=== PATIENT | female | born 1995 | race Caucasian/White ===

== ENCOUNTER 2017-07-10 20:56 | Emergency (ER) | payer SELFPAY ==
[~2017-07-10] VITALS: Ht 160 cm; Wt 81.5 kg
[~2017-07-10 20:56] MED LIST: Z.0.NO CURRENT MEDS
[2017-07-10 20:57] VITALS: BP 139/99; PULSE 86; RESP 15; TEMP 98.8; O2SAT 99
[2017-07-10 23:07] VITALS: BP 130/89; PULSE 77; RESP 18; TEMP 98.9; O2SAT 98
--- NOTE | 2017-07-10 23:44 | PD ---
HPI Chief Complaint: [place] Problem/Complaint Time Seen by Provider: 23:36 Travel History International Travel<30 days: No Contact w/Intl Traveler<30days: No Traveled to known affect area: No History of Present Illness HPI C/O SUPRAPUBIC PRESSURE, OVER LAST WEEK OR SO INTERMITTENTLY, NO VAG BLEED, NO VAG DISCHARGE, NONRAD, 05/24, PFSH Past Medical History Medical History: Denies Significant Hx ADHD: No Cancer: No Cardiovascular Problems: No Diabetes: No Patient Takes Glucophage: No Migraines: No Seizures: No Thyroid Disease: No Ulcer: No ?: Unknown LMP: 06/06/17 Past Surgical History Surgical History: No Previous Surgery Other Surgery: No Social History Alcohol Use: No Tobacco Use: No Substance Use: No Allergies-Medications (Allergen,Severity, Reaction): Coded Allergies: No Known Allergies (Unverified , 07/10/17) Reported Meds & Prescriptions Reported Meds & Active Scripts Active No Active Prescriptions or Reported Medications Review of Systems Except as stated in HPI: all other systems reviewed are Neg Gastrointestinal: Positive: Abdominal Pain Physical Exam Narrative GENERAL: SKIN: Warm and dry. HEAD: Atraumatic. Normocephalic. EYES: Pupils equal and round. No scleral icterus. No injection or drainage. ENT: No nasal bleeding or discharge. Mucous membranes pink and moist. NECK: Trachea midline. No JVD. CARDIOVASCULAR: Regular rate and rhythm. RESPIRATORY: No accessory muscle use. Clear to auscultation. Breath sounds equal bilaterally. GASTROINTESTINAL: Abdomen soft, MILD SUPRAPUBIC TTP, nondistended. MUSCULOSKELETAL: Extremities without clubbing, cyanosis, or edema. No obvious deformities. NEUROLOGICAL: Awake and alert. No obvious cranial nerve deficits. Motor grossly within normal limits. Five out of 5 muscle strength in the arms and legs. Normal speech. PSYCHIATRIC: Appropriate mood and affect; insight and judgment normal. Data Data Last Documented VS Vital Signs Date Time Temp Pulse Resp B/P (MAP) Pulse Ox O2 Delivery O2 Flow Rate FiO2 07/10/17 23:07 98.9 77 18 130/89 (103) 98 Room Air Orders Orders Urinalysis - C+S If Indicated (07/10/17 23:40) Ct Abd/Pel W/O Iv Contrast (07/10/17 23:40) Ed Urine Pregnancytest Poc (07/10/17 23:40) Tramadol (Ultram) (07/10/17 23:45) Ondansetron Odt (Zofran Odt) (07/10/17 23:45) Labs Laboratory Tests Test 07/10/17 23:40 Urine Color YELLOW Urine Turbidity CLEAR Urine pH 5.5 Urine Specific [place] 1.013 Urine Protein NEG mg/dL Urine Glucose (UA) NEG mg/dL Urine Ketones NEG mg/dL Urine Occult Blood NEG Urine Nitrite NEG Urine Bilirubin NEG Urine Urobilinogen LESS THAN 2.0 MG/DL Urine Leukocyte Esterase SMALL Urine RBC 1 /hpf Urine WBC 1 /hpf Urine Squamous Epithelial Cells 3 /hpf Microscopic Urinalysis Comment CULT NOT INDICATED MDM Medical Decision Making Medical Screen Exam Complete: Yes Emergency Medical Condition: Yes Medical Record Reviewed: Yes Differential Diagnosis UTI V PREG RELATED V OVARIAN CYST V COLITIS Narrative Course NOT , CT NEG FOR COLITIS/OVARIAN CYST/KIDNEY STONES....SOME PYURIA NOTED ON UA WILL D/C ON PO ABX Diagnosis Primary Impression: UTI Patient Instructions: General Instructions, Urinary Tract Infection in Women ( ED) Scripts Tramadol (Ultram) 50 Mg Tab 50 MG PO Q4H Y for PAIN, #20 TAB 0 Refills Prov: Mario Preston MD 07/11/17 Nitrofurantoin Monohydrate Macrocrystals (Macrobid) 100 Mg Cap 100 MG PO BID for Infection, #14 CAP 0 Refills Prov: Mario Preston MD 07/11/17 Disposition: 01 DISCHARGE HOME Condition: Stable Mario Preston MD Jul 10, 2017 23:44
[2017-07-10] MEDS ORDERED: traMADol HCL 50 MG TAB PO ONE (23:45)
[2017-07-10] MEDS ORDERED: ONDANSETRON ODT 4 MG TAB PO ONE (23:45)
[2017-07-11 00:02] LABS: BLOOD, URINE NEG (NEG); COMMENT (UR) CULT NOT INDICATED; CULTURE IF INDICATED CULT NOT INDICATED; GLUCOSE,URINE NEG (NEG); KETONE, URINE NEG (NEG); NITRITE,URINE NEG (NEG); PH, URINE 5.5 (5.0-8.5); SQUAMOUS EPITHELIAL CELL URINE 3 /hpf (0-5); URINE COLOR YELLOW (YELLW/STRAW)
--- NOTE | 2017-07-11 00:58 | RADRPT ---
EXAM DATE/TIME: 07/10/2017 23:54 [facility] COMPARISON: No previous studies available for comparison. INDICATIONS : Suprapubic pressure. ORAL CONTRAST: No oral contrast ingested. RADIATION DOSE: 12.60 CTDIvol (mGy) MEDICAL HISTORY : None SURGICAL HISTORY : None. ENCOUNTER: Initial ACUITY: 2 days PAIN SCALE: 8/10 LOCATION: lower abdomen TECHNIQUE: Volumetric scanning of the abdomen and pelvis was performed. Using automated exposure control and ad justment of the mA and/or kV according to patient size, radiation dose was kept as low as reasonably achievable to obtain optimal diagnostic quality images. DICOM format image data is available electro nically for review and comparison. FINDINGS: LOWER LUNGS: The visualized lower lungs are clear. LIVER: Homogeneous density without lesion. There is no dilation of the biliary tree. No calcified gallston es. SPLEEN: Normal size without lesion. PANCREAS: Within normal limits. KIDNEYS: Normal in size and shape. There is no mass, stone, or hydronephrosis. ADRENAL GLANDS: Within normal limits. VASCULAR: There is no aortic aneurysm. BOWEL/MESENTERY: The stomach, small bowel, and colon demonstrate no acute abnormality. There is no free intraperitone al air or fluid. ABDOMINAL WALL: Within normal limits. RETROPERITONEUM: There is no lymphadenopathy. BLADDER: No wall thickening or mass. REPRODUCTIVE: Within normal limits. INGUINAL: There is no lymphadenopathy or hernia. MUSCULOSKELETAL: Within normal limits for patient age. CONCLUSION: Normal examination. Car Mondragon MD on July 11, 2017 at 0:53 Board Certified Radiologist. This report was verified electronically.
[2017-07-11] MEDS ORDERED: ULTR50TA5 PO (03:24)
[2017-07-11] MEDS ORDERED: MACR100C2 PO (03:24)
== END 2017-07-11 03:49 | disposition home or self-care (01) ==
LOC: NEPC 20:56
DX: N39.0 Urinary tract infection, site not specified (principal)
CPT/HCPCS: 74176; 81001; 84703; 99285

== ENCOUNTER 2017-08-21 18:43 | Emergency (ER) | payer SELFPAY ==
[~2017-08-21 18:43] MED LIST changes: +MACR100C2 PO; +TRAM50 PO; -Z.0.NO CURRENT MEDS
[2017-08-21 18:47] VITALS: BP 140/81; PULSE 96; RESP 18; TEMP 99.1; O2SAT 99
[2017-08-21] MEDS ORDERED: PREN29TA PO (19:57)
[2017-08-21 20:12] LABS: BACTERIA, URINE RARE /hpf; BLOOD, URINE NEG (NEG); COMMENT (UR) CULT NOT INDICATED; CULTURE IF INDICATED CULT NOT INDICATED; GLUCOSE,URINE NEG (NEG); KETONE, URINE NEG (NEG); NITRITE,URINE NEG (NEG); SQUAMOUS EPITHELIAL CELL URINE 2 /hpf (0-5); URINE COLOR LIGHT-YELLOW (YELLW/STRAW)
[2017-08-21 20:19] LABS: AUTOMATED NEUTROPHIL # 7.6 TH/MM3 (1.8-7.7); BASOPHIL # 0.1 TH/MM3 (0-0.2); BASOPHIL % 0.5 % (0.0-2.0); EOSINOPHIL # 0.1 TH/MM3 (0-0.4); EOSINOPHIL % 0.7 % (0.0-4.0); HEMATOCRIT 40.6 % (35.0-46.0); HEMO FLAGS DIFF FINAL; LYMPHOCYTE # 3.7 TH/MM3 (1.0-4.8); MEAN CELL VOLUME 85.6 FL (80.0-100.0); MEAN CORPUSCULAR HEMOGLOBIN 29.5 PG (27.0-34.0); MEAN CORPUSCULAR HGB CONC 34.4 % (32.0-36.0); MONO % 9.7 % (0.0-8.0); NEUT % 60.1 % (16.0-70.0); PLATELET COUNT 284 TH/MM3 (150-450); RED BLOOD COUNT 4.74 MIL/MM3 (4.00-5.30); RED CELL DISTRIBUTION WIDTH 12.7 % (11.6-17.2); WHITE BLOOD COUNT 12.6 TH/MM3 (4.0-11.0)
[2017-08-21 20:42] LABS: BICARBONATE 25.5 MEQ/L (21.0-32.0); POTASSIUM 4.1 MEQ/L (3.5-5.1)
--- NOTE | 2017-08-21 22:55 | PD ---
HPI Chief Complaint: Related Problem Time Seen by Provider: 20:52 Travel History International Travel<30 days: No Contact w/Intl Traveler<30days: No Traveled to known affect area: No History of Present Illness HPI 22-year-old female complains of lower abdominal pain. Patient is 3 para 0. Patient states that she is about 6 weeks by date. Patient states that she started having low abdominal cramping since this morning. Patient denies any pain radiation. Patient denies any vaginal discharge or bleeding. Patient denies any dysuria or frequency. Patient denies any fever chills. Patient denies any back pain. Patient has not seen an OB physician for this . Patient's blood type A+. PFSH Past Medical History ADHD: No Cancer: No Cardiovascular Problems: No Diabetes: No Diminished Hearing: No Immunizations Current: Yes Migraines: No Seizures: No Thyroid Disease: No Ulcer: No ?: Dilation and Curettage (D&C): Yes Past Surgical History Other Surgery: No Social History Alcohol Use: No Tobacco Use: No Substance Use: No Allergies-Medications (Allergen,Severity, Reaction): Coded Allergies: No Known Allergies (Unverified Adverse Reaction, Unknown, 08/21/17) Reported Meds & Prescriptions Reported Meds & Active Scripts Active Reported Plus Iron 29-1 mg ( Vit-Iron Carbonyl) 29 Mg Iron-1 Mg Tab 1 Tab PO DAILY Review of Systems General / Constitutional: No: Fever Eyes: No: Visual changes HENT: No: Headaches Cardiovascular: No: Chest Pain or Discomfort Respiratory: No: Shortness of Breath Gastrointestinal: Positive: Abdominal Pain Genitourinary: No: Dysuria Musculoskeletal: No: Pain Skin: No Rash Neurologic: No: Weakness Psychiatric: No: Depression Endocrine: No: Polydipsia Hematologic/Lymphatic: No: Easy Bruising Physical Exam Narrative GENERAL: Well-nourished, well-developed patient. SKIN: Focused skin assessment warm/dry. HEAD: Normocephalic. EYES: No scleral icterus. No injection or drainage. NECK: Supple, trachea midline. No JVD or lymphadenopathy. CARDIOVASCULAR: Regular rate and rhythm without murmurs, gallops, or rubs. RESPIRATORY: Breath sounds equal bilaterally. No accessory muscle use. GASTROINTESTINAL: Abdomen soft, nondistended. Mild tenderness on palpation lower abdomen. No rebound tenderness. No mass. MUSCULOSKELETAL: No cyanosis, or edema. BACK: Nontender without obvious deformity. No CVA tenderness. DIRECTOR [employer]ORTS exam: The cervix long thick and closed. Uterus is enlarged with mild tenderness on palpation. No adnexal mass or tenderness. Neurologic exam normal. Data Data Last Documented VS Vital Signs Date Time Temp Pulse Resp B/P (MAP) Pulse Ox O2 Delivery O2 Flow Rate FiO2 08/21/17 19:55 18 08/21/17 18:47 99.1 96 140/81 (100) 99 Room Air Orders Orders Complete Blood Count With Diff (08/21/17 19:04) Basic Metabolic Panel (Bmp) (08/21/17 19:04) Urinalysis - C+S If Indicated (08/21/17 19:04) Beta Hcg (Quant/Titer) (08/21/17 19:04) Complete Rh (08/21/17 19:04) Ed Urine Pregnancytest Poc (08/21/17 19:50) Us Pelvis (Ques Pr/Ect)W Trans (08/21/17 21:25) Labs Laboratory Tests Test 08/21/17 19:17 08/21/17 19:30 Urine Color LIGHT-YELLOW Urine Turbidity CLEAR Urine pH 5.0 Urine Specific [place] 1.009 Urine Protein NEG mg/dL Urine Glucose (UA) NEG mg/dL Urine Ketones NEG mg/dL Urine Occult Blood NEG Urine Nitrite NEG Urine Bilirubin NEG Urine Urobilinogen LESS THAN 2.0 MG/DL Urine Leukocyte Esterase MOD Urine RBC 3 /hpf Urine WBC 4 /hpf Urine Squamous Epithelial Cells 2 /hpf Urine Amorphous Sediment RARE Urine Bacteria RARE /hpf Microscopic Urinalysis Comment CULT NOT INDICATED White Blood Count 12.6 TH/MM3 Red Blood Count 4.74 MIL/MM3 Hemoglobin 14.0 GM/DL Hematocrit 40.6 % Mean Corpuscular Volume 85.6 FL Mean Corpuscular Hemoglobin 29.5 PG Mean Corpuscular Hemoglobin Concent 34.4 % Red Cell Distribution Width 12.7 % Platelet Count 284 TH/MM3 Mean Platelet Volume 8.2 FL Neutrophils (%) (Auto) 60.1 % Lymphocytes (%) (Auto) 29.0 % Monocytes (%) (Auto) 9.7 % Eosinophils (%) (Auto) 0.7 % Basophils (%) (Auto) 0.5 % Neutrophils # (Auto) 7.6 TH/MM3 Lymphocytes # (Auto) 3.7 TH/MM3 Monocytes # (Auto) 1.2 TH/MM3 Eosinophils # (Auto) 0.1 TH/MM3 Basophils # (Auto) 0.1 TH/MM3 CBC Comment DIFF FINAL Differential Comment Blood Urea Nitrogen 10 MG/DL Creatinine 0.64 MG/DL Random Glucose 63 MG/DL Calcium Level 9.5 MG/DL Sodium Level 136 MEQ/L Potassium Level 4.1 MEQ/L Chloride Level 103 MEQ/L Carbon Dioxide Level 25.5 MEQ/L Anion Gap 8 MEQ/L Estimat Glomerular Filtration Rate 118 ML/MIN Human Chorionic Gonadotropin, Quant 5270 MIU/ML MDM Medical Decision Making Medical Screen Exam Complete: Yes Emergency Medical Condition: Yes Interpretation(s) 22:53 PM. CBC WBC 12.6. Normal differential. BMP within normal limit. Beta- hCG 5270. UA positive for 4 WBC and rare bacteria. Blood type A+ 23:45 PM. Last Impressions Pelvis Ultrasound 08/21/172124 Signed Impressions: Service Date/Time: Monday, August 21, 2017 22:00 - CONCLUSION: 1. Solitary intrauterine gestation. Gestational age is below the threshold for accurate depiction with ultrasound. 2. 2 cm complex cystic lesion involving the right ovary likely related to corpus luteal cyst. Kt Peters Jr., MD Differential Diagnosis Differential diagnosis including threaten AB, incomplete AB, completed AB, ectopic , UTI, ligament pain. Narrative Course 22-year-old female with a 6 week by date complains of low abdominal pain. Diagnosis Primary Impression: Pelvic pain during Additional Impression: Bacteriuria Patient Instructions: General Instructions Additional Instructions: Macrobid as directed. Follow-up with personal physician and OB physician. Return if increased abdominal pain, vaginal discharge or bleeding. Med/Other Pt SpecificInfo: Prescription(s) given Scripts Nitrofurantoin Monohydrate Macrocrystals (Macrobid) 100 Mg Cap 100 MG PO BID for Infection, #14 CAP 0 Refills Prov: Chuy Lees MD 08/21/17 Disposition: 01 DISCHARGE HOME Condition: Stable Chuy Lees MD Aug 21, 2017 22:55
--- NOTE | 2017-08-21 22:58 | RADRPT ---
EXAM DATE/TIME: 08/21/2017 22:00 [facility] COMPARISON: No previous studies available for comparison. INDICATIONS : Pelvic pain. LAB(S): Beta-hC MEDICAL HISTORY : . Miscarriage x 2. Ectopic . SURGICAL HISTORY : Dilation and curettage. ENCOUNTER: Initial ACUITY: 1 day PAIN SCORE: 4/10 LOCATION: Bilateral pelvis MEASUREMENTS: UTERUS: 10.3 x 5.7 x 3.9 cm ENDOMETRIAL STRIPE: 13 mm RIGHT OVARY: 4.5 x 2.4 x 2.5 cm LEFT OVARY: 2.3 x 1.3 x 1.3 cm FREE FLUID: No CROWN RUMP LENGTH: Non visualized. = WKS DAYS FHR: Non visualized. BPM FINDINGS: UTERUS: A solitary intrauterine gestation observed. There is a smoothly marginated and well circumscribed ges tational sac. Mean sac diameter 0.92 cm which is below the threshold for accurate gestational age dep iction with ultrasound. There is a well-formed yolk sac. No pole currently seen. A tiny nabothi an cyst measuring 4 mm. RIGHT OVARY: There is a complex cyst measuring 2 cm in diameter. There is some posterior acoustical enhancement. T he remaining ovary is unremarkable. LEFT OVARY: Ovary contains no mass or significant cystic lesion. MISCELLANEOUS: No free fluid. CONCLUSION: 1. Solitary intrauterine gestation. Gestational age is below the threshold for accurate depiction wit h ultrasound. 2. 2 cm complex cystic lesion involving the right ovary likely related to corpus luteal cyst. Kt Peters Jr., MD on August 21, 2017 at 22:53 Board Certified Radiologist. This report was verified electronically.
[2017-08-21] MEDS ORDERED: MACR100C2 PO (23:49)
== END 2017-08-22 00:14 | disposition home or self-care (01) ==
LOC: NEPD 18:43
DX: O26.891 Other specified pregnancy related conditions, first trimester (principal); R10.2 Pelvic and perineal pain; R82.71 Bacteriuria; Z3A.01 Less than 8 weeks gestation of pregnancy
CPT/HCPCS: 76700; 76817; 80048; 81001; 84702; 84703; 85025; 86901

== ENCOUNTER 2017-09-16 12:48 | Emergency (ER) | payer OTHER ==
[~2017-09-16] VITALS: Ht 185.4 cm; Wt 90.0 kg
[~2017-09-16 12:48] MED LIST changes: -MACR100C2 PO; +PREN1CAP20 PO; +PREN29TA PO; -TRAM50 PO
[2017-09-16 12:49] VITALS: BP 139/87; PULSE 101; RESP 16; TEMP 98; O2SAT 99
--- NOTE | 2017-09-16 13:27 | PD ---
HPI Chief Complaint: Dizziness Time Seen by Provider: 12:59 Travel History International Travel<30 days: No Contact w/Intl Traveler<30days: No Traveled to known affect area: No History of Present Illness HPI Patient is a 22-year-old female presenting to emergency for evaluation of a sore throat. She states it started last night, it was worse this morning. She states the pain is 8 out of 10 and she states his sore and irritated feeling. She also reports abdominal cramping, this is been ongoing for the last several days. She denies any vaginal bleeding, discharge, nausea, vomiting. Patient is 10 weeks . She has been seen and evaluated by her optometric technologist and is taking vitamins. She states that she has not had a bowel movement in 1 week. She did not contact her optometric technologist regarding the abdominal cramping as the pain was not that significant. Patient took Tylenol at 10:00 this morning. PFSH Past Medical History Medical History: Denies Significant Hx ADHD: No Cancer: No Cardiovascular Problems: No Diabetes: No Diminished Hearing: No Immunizations Current: Yes Migraines: No Seizures: No Thyroid Disease: No Ulcer: No ?: Dilation and Curettage (D&C): Yes Past Surgical History Surgical History: No Previous Surgery Other Surgery: No Social History Alcohol Use: No Tobacco Use: No Substance Use: No Allergies-Medications (Allergen,Severity, Reaction): Coded Allergies: No Known Allergies (Unverified Adverse Reaction, Unknown, 09/16/17) Reported Meds & Prescriptions Reported Meds & Active Scripts Active No Active Prescriptions or Reported Medications Review of Systems Except as stated in HPI: all other systems reviewed are Neg General / Constitutional: No: Fever, Chills HENT: Positive: Sore Throat Cardiovascular: No: Chest Pain or Discomfort Respiratory: No: Shortness of Breath Gastrointestinal: Positive: Constipation, No: Nausea, Abdominal Pain Genitourinary: No: Dysuria, Pelvic Pain, Flank Pain, Discharge, Vaginal Bleeding Musculoskeletal: Positive: Cramping (abdominal) Neurologic: Positive: Dizziness Physical Exam Narrative GENERAL: Well developed, well nourished, anxious appearing female. Resting in no acute distress. SKIN: Warm and dry. HEAD: Atraumatic. Normocephalic. EYES: Pupils equal and round. No scleral icterus. No injection or drainage. ENT: No nasal bleeding or discharge. Mucous membranes pink and moist. 1+ tonsillar hypertrophy, mild erythema noted. Airway is patent. NECK: Trachea midline. No JVD. CARDIOVASCULAR: Regular rate and rhythm. RESPIRATORY: No accessory muscle use. Clear to auscultation. Breath sounds equal bilaterally. GASTROINTESTINAL: Abdomen soft, mildly tender to deep palpation in right lower quadrant, nondistended. Hepatic and splenic margins not palpable. No rebound, no guarding, positive bowel sounds MUSCULOSKELETAL: Extremities without clubbing, cyanosis, or edema. No obvious deformities. NEUROLOGICAL: Awake and alert. No obvious cranial nerve deficits. Motor grossly within normal limits. Five out of 5 muscle strength in the arms and legs. Normal speech. PSYCHIATRIC: Anxious mood and affect; insight and judgment normal. Data Data Last Documented VS Vital Signs Date Time Temp Pulse Resp B/P (MAP) Pulse Ox O2 Delivery O2 Flow Rate FiO2 09/16/17 12:49 98.0 101 16 139/87 (104) 99 Orders Orders Group A Rapid Strep Screen (09/16/17 13:20) Urinalysis - C+S If Indicated (09/16/17 13:20) Strep Culture (Group A) (09/16/17 13:25) Labs Laboratory Tests Test 09/16/17 13:25 Urine Color LIGHT-YELLOW Urine Turbidity HAZY Urine pH 6.0 Urine Specific [place] 1.009 Urine Protein NEG mg/dL Urine Glucose (UA) NEG mg/dL Urine Ketones TRACE mg/dL Urine Occult Blood NEG Urine Nitrite NEG Urine Bilirubin NEG Urine Urobilinogen LESS THAN 2.0 MG/DL Urine Leukocyte Esterase SMALL Urine RBC LESS THAN 1 /hpf Urine WBC LESS THAN 1 /hpf Urine Squamous Epithelial Cells 3 /hpf Urine Transitional Epithelial Cells <1 /hpf Urine Bacteria OCC /hpf Urine Mucus FEW /lpf Microscopic Urinalysis Comment CULT NOT INDICATED MDM Medical Decision Making Medical Screen Exam Complete: Yes Emergency Medical Condition: Yes Medical Record Reviewed: Yes Interpretation(s) Laboratory Tests Test 09/16/17 13:25 Urine Color LIGHT-YELLOW Urine Turbidity HAZY Urine pH 6.0 Urine Specific [place] 1.009 Urine Protein NEG mg/dL Urine Glucose (UA) NEG mg/dL Urine Ketones TRACE mg/dL Urine Occult Blood NEG Urine Nitrite NEG Urine Bilirubin NEG Urine Urobilinogen LESS THAN 2.0 MG/DL Urine Leukocyte Esterase SMALL Urine RBC LESS THAN 1 /hpf Urine WBC LESS THAN 1 /hpf Urine Squamous Epithelial Cells 3 /hpf Urine Transitional Epithelial Cells <1 /hpf Urine Bacteria OCC /hpf Urine Mucus FEW /lpf Microscopic Urinalysis Comment CULT NOT INDICATED Vital Signs Date Time Temp Pulse Resp B/P (MAP) Pulse Ox O2 Delivery O2 Flow Rate FiO2 09/16/17 12:49 98.0 101 16 139/87 (104) 99 Differential Diagnosis Strep pharyngitis versus viral syndrome versus constipation versus hyperventilation versus other Narrative Course Patient is a 22-year-old anxious-appearing female presenting for evaluation of sore throat and abdominal cramping. Cramping is consistent with how she would feel with menstrual cramps. She has had no vaginal bleeding or discharge. She is followed by optometric technologist at [facility]. Patient is anxious, dizziness is likely secondary to hyperventilation. Patient's respirations are fast and she is tearful. Will check strep screen and urinalysis now. Strep is negative, urinalysis unremarkable. Patient was reassessed, she is resting comfortably. Physical exam is here is most consistent with a viral URI. Stated that her abdominal cramping is better. Her symptoms seem to be exacerbated by anxiety on arrival. She is advised to follow-up with her optometric technologist. She was encouraged to return for any new or worsening symptoms to the emergency department. Patient was advised to continue with symptomatic management. She was encouraged to take Tylenol as needed and as directed for body aches or fevers. She can obtain [id number] Flonase or Nasonex and use as directed. She will be given a prescription for backup antibiotic however she was encouraged to continue watchful waiting. Patient verbalized understanding of instructions Diagnosis Primary Impression: Viral URI Additional Impression: Qualified Codes: Z3A.10 - 10 weeks gestation of Referrals: Personnel Research Scientist Primary Care Physician Patient Instructions: General Instructions, Upper Respiratory Infection (ED) Additional Instructions: Continue symptom management Take [id number] Tylenol as needed and as directed for body aches or fever Gargle with warm salt water Obtain [id number] Flonase her Nasonex and use as directed Return to emergency department immediately for any new or worsening symptoms Follow-up with your optometric technologist as scheduled. Med/Other Pt SpecificInfo: Prescription(s) given Scripts Amoxicillin (Amoxicillin) 875 Mg Tab 875 MG PO BID for Infection for 10 Days, #20 TAB 0 Refills Prov: Adriana Baron 09/16/17 Disposition: 01 DISCHARGE HOME Condition: Stable Adriana Baron Sep 16, 2017 13:27
[2017-09-16 13:46] LABS: BACTERIA, URINE OCC /hpf; BLOOD, URINE NEG (NEG); COMMENT (UR) CULT NOT INDICATED; CULTURE IF INDICATED CULT NOT INDICATED; GLUCOSE,URINE NEG (NEG); KETONE, URINE TRACE mg/dL (NEG); MUCUS URINE FEW /lpf (OCC); NITRITE,URINE NEG (NEG); SQUAMOUS EPITHELIAL CELL URINE 3 /hpf (0-5); TRANSITIONAL EPI CELLS, URINE <1 /hpf; URINE COLOR LIGHT-YELLOW (YELLW/STRAW)
[2017-09-16] MEDS ORDERED: AMOX875T PO (15:11)
[2017-09-24] MEDS ORDERED: BACT800T5 PO (16:12)
== END 2017-09-16 15:25 | disposition home or self-care (01) ==
LOC: NEPE 12:48
DX: O99.511 Diseases of the respiratory system complicating pregnancy, first trimester (principal); J06.9 Acute upper respiratory infection, unspecified; R42 Dizziness and giddiness; K59.00 Constipation, unspecified; Z3A.10 10 weeks gestation of pregnancy
CPT/HCPCS: 81001; 87081; 87880; 99283

== ENCOUNTER 2017-12-02 15:54 | Emergency (ER) | payer MEDICAID, OTHER ==
[~2017-12-02 15:54] MED LIST changes: +NITR1CAP36 PO; -PREN29TA PO
[2017-12-02 16:30] VITALS: RESP 18; TEMP 97.7
--- NOTE | 2017-12-02 16:48 | PD ---
HPI Chief Complaint spotting Date Seen: Dec 02, 2017 Time Seen: 16:41 Travel History International Travel<30 Days: No Contact w/Intl Traveler<30Days: No Known Affected Area: No History of Present Illness HPI 22y/o @ 20.2wks. She has [facility]. Presents today b/c around 2pm she used the bathroom and saw a drop of blood when she wiped. It happened again here in triage. No LOF or ctx. +FM. Last intercourse 1wk ago. She reports that she has an anatomy US this Sunday. Had a recent UTI, Rx'd abx. Weeks Gestation: 20 Para: 0 : 3 History Past Medical History Medical History: Denies Significant Hx Obstetric History Obstetric History SAB x2 Past Surgical History Narrative Surgical D&C Family History Family History: Negative Social History Alcohol Use: No Tobacco Use: No Substance Abuse: No Allergies-Medications (Allergen,Severity, Reaction): Coded Allergies: amoxicillin (Verified Allergy, Severe, Rash, 11/08/17) Home Meds Active Scripts W/O Vit A W/ Fe Carbo (Prenate Mini 18-0.6-0.4-350 mg) 18 Mg Iron-1 Mg- 350 Mg Cap, 1 TAB PO DAILY, #30 BOTTLE 11 Refills Prov:Tarsha Malik 11/08/17 Discontinued Scripts Nitrofurantoin Macrocrystal (Nitrofurantoin Macrocrystal) 100 Mg Cap, 100 MG PO BID for Infection, #14 CAP 0 Refills Prov:Tarsha Malik 11/08/17 Review of Systems Except as stated in HPI: all other systems reviewed are Neg Physical Exam Narrative General: well developed, well nourished, no acute distress HEENT: normocephalic atraumatic, extraocular movements intact, neck supple Abdomen: soft, gravid, nontender, nondistended Uterus: fundus at umbilicus Extremities: full range of motion Skin: normal coloration, no rashes, no suspicious skin lesions noted Neurologic: cranial nerves 2-12 grossly intact, normal muscle tone, normal gait Psychiatric: normal mood and affect, appropriate FHTs: present @ 151 Data Data Vital Signs Reviewed: Yes Orders Orders Vital Signs (Adult) .ON ADMISSION (12/02/17 16:40) ^ Labor Status (12/02/17 16:40) Heart (12/02/17 16:40) Ed Discharge Order (12/02/17 16:40) MDM Plan 22y/o @ 20.2wks with spotting. -- related to recent UTI vs intercourse -- only a drop of light red -- precautions reviewed including pelvic rest for possible previa until Sunday US Dispo: stable for d/c home Diagnosis Diagnosis: Primary Impression: 20 weeks gestation of Additional Impression: Spotting affecting in second trimester Nadine Gross MD Dec 02, 2017 16:48
== END 2017-12-02 17:12 | disposition home or self-care (01) ==
LOC: HOBED 15:54
DX: O26.852 Spotting complicating pregnancy, second trimester (principal); Z3A.20 20 weeks gestation of pregnancy
CPT/HCPCS: 99283

== ENCOUNTER 2017-12-29 22:09 | Emergency (ER) | payer MEDICAID ==
[~2017-12-29 22:09] MED LIST changes: -NITR1CAP36 PO
--- NOTE | 2017-12-29 22:50 | PD ---
HPI Chief Complaint Fall Date Seen: Dec 29, 2017 Time Seen: 22:46 Travel History International Travel<30 Days: No Contact w/Intl Traveler<30Days: No Known Affected Area: No History of Present Illness HPI 22-year-old who is at 24 weeks 1 day was walking outside on a sidewalk and tripped and fell to her knees. She felt her abdomen touch her thighs but there was no direct abdominal trauma noted. Patient was not pushed and she experienced no additional trauma no abrasions and denies any domestic violence. Patient has had good movement and denies vaginal bleeding. Patient sees care for women at the [facility] and has a follow-up appointment next week. She denies any antepartum complications and denies any chronic medical conditions. Weeks Gestation: 24 Para: 0 : 2 Miscarriage: 1 History Past Medical History Medical History: Denies Significant Hx Obstetric History Obstetric History Miscarriage with D&C Past Surgical History Surgical History: No Previous Surgery Family History Family History: Negative Social History Alcohol Use: No Tobacco Use: No Substance Abuse: No Allergies-Medications (Allergen,Severity, Reaction): Coded Allergies: amoxicillin (Verified Allergy, Severe, Rash, 11/08/17) Home Meds Active Scripts W/O Vit A W/ Fe Carbo (Prenate Mini 18-0.6-0.4-350 mg) 18 Mg Iron-1 Mg- 350 Mg Cap, 1 TAB PO DAILY, #30 BOTTLE 11 Refills Prov:Tarsha Malik 11/08/17 Review of Systems Except as stated in HPI: all other systems reviewed are Neg Physical Exam Narrative GENERAL: Well-nourished, well-developed patient. SKIN: Warm and dry. HEAD: Normocephalic and atraumatic. EYES: No scleral icterus. No injection or drainage. ENT: No nasal drainage noted. Mucous membranes pink. Airway patent. NECK: Supple, trachea midline. No JVD. CARDIOVASCULAR: Regular rate and rhythm without murmurs, gallops, or rubs. RESPIRATORY: Breath sounds equal bilaterally. No accessory muscle use. ABDOMEN/GI: Abdomen soft, non-tender, bowel sounds present, no rebound, no guarding Gravid to [-] 24 weeks size Fundal Height: [-] GENITOURINARY: Deferred External Genitalia: intact and normal in appearance BUS glands: [-] Normal Cervix: [-] Dilatation: [-] Effacement: [-] Station: [-] Presentation: [-] Membranes: [intact or ruptured] Uterine Contractions: [-] Absent FHT's: Category: [-] 1 Baseline: [-] 140 Reactive: [-] Moderate Variability: [-] Moderate Decels: [-] Absent EXTREMITIES: No cyanosis or edema. No trauma or abrasions are noted BACK: Nontender without obvious deformity. No CVA tenderness. NEUROLOGICAL: Awake and alert. Motor and sensory grossly within normal limits. Five out of 5 muscle strength in all muscle groups. Normal speech. Data Data Vital Signs Reviewed: Yes [facility] Medical Record Reviewed: Yes Plan 22-year-old who is at 24 weeks 1 day, post mild fall with no abdominal trauma and no evidence of any additional injuries No contractions are noted on the monitor, no vaginal bleeding, no indications of abruption Patient was able be discharged with precautions to return for abdominal pain or vaginal bleeding Follow up with obstetrical provider as scheduled Diagnosis Diagnosis: Primary Impression: 24 weeks gestation of Additional Impression: Fall (on)(from) sidewalk curb, initial encounter Disposition: 01 DISCHARGE HOME Heather Escobedo MD Dec 29, 2017 22:50
== END 2017-12-29 23:05 | disposition home or self-care (01) ==
LOC: HOBED 22:09
DX: Z04.3 Encounter for examination and observation following other accident (principal); Z3A.24 24 weeks gestation of pregnancy; Z88.0 Allergy status to penicillin
CPT/HCPCS: 99281; J3010